=== PATIENT | female | born 1955 | race Caucasian/White ===

== ENCOUNTER 2025-07-07 19:29 | Inpatient (IN) | payer MEDICAID, MEDICARE, OTHER ==
[~2025-07-07] VITALS: Ht 157.5 cm; Wt 68.7 kg
[~2025-07-07 19:29] MED LIST: ATEN50TA PO; ONDA4TAB21 PO
[2025-07-07 19:39] VITALS: O2SAT 97
[2025-07-07 20:48] LABS: HEMATOCRIT. 40.7 % (36.0-48.0); HEMOGLOBIN. 13.1 g/dL (12.0-16.0); MEAN PLATELET VOLUME 8.9 fl (7.4-10.4); PLATELET 221 x1000/uL (130-400); RED BLOOD CELL COUNT 5.03 mill/uL (4.2-5.4); RED CELL DISTRIBUTION WIDTH 14.7 % (11.6-14.6)
[2025-07-07 20:50] LABS: CREATININE 0.9 mg/dL (0.6-1.0)
[2025-07-07 20:51] LABS: TROPONIN I HIGH SENSITIVITY < 4 ng/L (3.0-34); UREA NITROGEN BLOOD 13 mg/dL (9-23)
[2025-07-07 20:52] LABS: ASPARTATE AMINOTRANSFERASE 31 IU/L (<34)
[2025-07-07 20:53] LABS: BILIRUBIN DIRECT 0.2 mg/dL (<=3.0); BILIRUBIN TOTAL 0.6 mg/dL (0.1-1.0); PROTEIN TOTAL 7.3 g/dL (6.0-8.3)
[2025-07-07 21:05] LABS: BAND% 5.0 % (1.0-6.0); LYMPHOCYTES % MANUAL 3.0 % (20.0-60.0); MONOCYTES % MANUAL 1.0 % (2.0-8.0); NEUTROPHILS % MANUAL 91.0 % (45.0-75.0); PLATELET ESTIMATE NORMAL
[2025-07-07] MEDS: ONDANSETRON HCL 4MG/2ML INJ IV ONE (21:13)
[2025-07-07] MEDS: KETOROLAC 15MG/ML VIAL IV ONE (21:13)
[2025-07-07] MEDS: SODIUM CHLORIDE 0.9% 1,000 ML IV ONE (21:14)
[2025-07-07] MEDS: POTASSIUM CHLORIDE 20MEQ/PACKET PO ONE (22:46)
[2025-07-07 23:00] VITALS: BP 107/49; PULSE 82; RESP 16; TEMP 36.4; O2SAT 96
[2025-07-07] MEDS ORDERED: DICL100T96 PO (23:14)
[2025-07-07] MEDS ORDERED: AMLO10TA80 MT (23:14)
[2025-07-07] MEDS ORDERED: LOSA100T33 MT (23:14)
[2025-07-07] MEDS ORDERED: CLONIDINE 0.1MG TABLET PO PRN (23:30)
[2025-07-07] MEDS ORDERED: ONDANSETRON HCL 4MG/2ML INJ IV PRN (23:30)
[2025-07-07] MEDS ORDERED: KETOROLAC 30MG/ML VIAL IV PRN (23:30)
[2025-07-07] MEDS ORDERED: ACETAMINOPHEN 325MG TABLET PO PRN ×2 (23:30)
[2025-07-07] MEDS ORDERED: MAGNESIUM/ALUMINUM HYDROXIDE/SIMETHICONE 30ML UDC PO PRN (23:30)
[2025-07-07] MEDS ORDERED: DIPHENHYDRAMINE 50MG/ML VIAL IV PRN (23:30)
[2025-07-07] MEDS ORDERED: GABA-1180 PO (23:51)
[2025-07-07] MEDS ORDERED: CHOL400D7 PO (23:51)
[2025-07-07] MEDS ORDERED: LACT10SO81 MT (23:51)
[2025-07-07] MEDS ORDERED: ATOR10TA MT (23:51)
[2025-07-07] MEDS ORDERED: ACET-2708 PO (23:51)
[2025-07-07] MEDS ORDERED: MELO-104 MT (23:51)
[2025-07-08] VITALS (7 sets, daily range): BP systolic 104–132; BP diastolic 38–91; PULSE 71–82; RESP 14–20; TEMP 36.3–37.1; O2SAT 94–98
[2025-07-08] MEDS ORDERED: KCL 20MEQ/100ML PREMIX 100 ML IV SCH
[2025-07-08] MEDS: SODIUM CHLORIDE 0.9% 1,000 ML IV SCH (00:44)
[2025-07-08] MEDS: POTASSIUM CHLORIDE 20MEQ TABLET SR PO NR (00:44)
[2025-07-08] MEDS: LACTULOSE 20G/30ML UDC PO PRN (00:44)
[2025-07-08] MEDS: PANTOPRAZOLE SODIUM 40 MG/VIAL IV SCH (01:00)
[2025-07-08] MEDS: ZOLPIDEM TARTRATE 5MG TABLET PO PRN (01:00)
[2025-07-08] MEDS ORDERED: MELA5TAB19 MT (01:09)
[2025-07-08] MEDS: MAGNESIUM 4 G PREMIX 100 ML IV NR (02:20)
[2025-07-08] MEDS: SODIUM CHLORIDE 0.9% 3ML FLUSH IVF SCH (06:09)
[2025-07-08 06:50] LABS: *AMPHETAMINES SCREEN URINE NEGATIVE (NEGATIVE); *BARBITURATES SCREEN URINE NEGATIVE (NEGATIVE); *BENZODIAZEPINES SCREEN URINE NEGATIVE (NEGATIVE); *COCAINE SCREEN URINE NEGATIVE (NEGATIVE); METHADONE URINE SCREEN NEGATIVE (NEGATIVE)
[2025-07-08 06:51] LABS: CANNABINOID URINE SCREEN NEGATIVE (NEGATIVE); ECSTASY MDMA SCREEN URINE NEGATIVE (NEGATIVE); OPIATES URINE SCREEN NEGATIVE (NEGATIVE); PHENCYCLIDINE URINE SCREEN NEGATIVE (NEGATIVE)
[2025-07-08] MEDS ORDERED: PANTOPRAZOLE SODIUM 40 MG/VIAL IV SCH (09:00)
[2025-07-08 10:16] LABS: HEMATOCRIT. 36.2 % (36.0-48.0); HEMOGLOBIN. 11.5 g/dL (12.0-16.0); MEAN PLATELET VOLUME 8.6 fl (7.4-10.4); PLATELET 234 x1000/uL (130-400); RED BLOOD CELL COUNT 4.42 mill/uL (4.2-5.4); RED CELL DISTRIBUTION WIDTH 15.0 % (11.6-14.6)
[2025-07-08 10:40] LABS: CREATININE 0.8 mg/dL (0.6-1.0)
[2025-07-08 10:41] LABS: UREA NITROGEN BLOOD 13 mg/dL (9-23)
[2025-07-08 10:43] LABS: PHOSPHORUS 2.0 mg/dL (2.5-4.9)
[2025-07-08 16:17] LABS: HEPATITIS C AB NON REACTIVE (Neg) (Negative)
[2025-07-08 20:41] LABS: BAND% 6.0 % (1.0-6.0); LYMPHOCYTES % MANUAL 7.0 % (20.0-60.0); MONOCYTES % MANUAL 3.0 % (2.0-8.0); NEUTROPHILS % MANUAL 84.0 % (45.0-75.0); PLATELET ESTIMATE NORMAL
== END 2025-07-08 19:12 | disposition home or self-care (01) | DRG 641 ==
LOC: ER 19:29 → 3WST 21:42 → EDBEDREQ 21:51 → EDBEDREQTM 21:51 → ENRESERV 22:07
PROVIDERS: ADMIT Internal Medicine; ATTEND Internal Medicine
DX: E87.6 Hypokalemia (principal); I10 Essential (primary) hypertension; E83.42 Hypomagnesemia; M54.50 Low back pain, unspecified; E78.00 Pure hypercholesterolemia, unspecified; Z79.899 Other long term (current) drug therapy
CPT/HCPCS: 36415; 71045; 74176; 80048; 80076; 80305; 83605; 83735; 83880; 84100; 84484; 85025; 86705; 87340; 93970; 96361; 96374; 96375; 99285; A4606; J1885; J2405; J2470; J3475; J7030